=== PATIENT | female | born 1955 ===

== ENCOUNTER → 2025-01-29 15:17 | Outpatient (CLI) | payer MEDICARE, OTHER, SELFPAY ==
--- NOTE | 2025-01-29 15:29 | DI.MG.S_ITS ---
MM screening mammo BI: 01/29/2025. BI-RADS: 0 CLINICAL: 69-year old female for bilateral screening mammogram. Tyrer-Cuzick lifetime risk of 4.6%. No personal or first-degree family history of breast cancer. PRIOR EXAMS: 12/05/2022, 01/08/2020. MAMMOGRAPHY TECHNIQUE: 2D and 3D (tomosynthesis) digital mammographic views obtained, with additional images as needed for full coverage. Current study was also evaluated with a Computer Aided Detection (CAD) system. DENSITY C. The breasts are heterogeneously dense, which may obscure small masses. MAMMOGRAPHY FINDINGS Right: CC only, Inner, Middle depth: Asymmetry needing additional imaging evaluation. Left: No suspicious mass, asymmetry, microcalcification, or other abnormality seen. IMPRESSION: Right (Asymmetry): CC only, Inner, Middle depth * Incomplete - asymmetry needing additional imaging evaluation. Left * No evidence of malignancy. RECOMMENDATIONS Right: CC only, Inner, Middle depth * Further evaluation with diagnostic mammography and diagnostic ultrasound. Ultrasound to be performed only if needed. OVERALL ASSESSMENT CATEGORY BI-RADS-0: Incomplete - Need Additional Imaging Evaluation. ELECTRONICALLY SIGNED: Sana Cochran M.D. on 02/02/2025 at 08:19:36 AM PT Interpreting Station ID: [id number]
== END ==
PROVIDERS: PCP Registered Nurse; Referring Provider Registered Nurse; Visit Provider Registered Nurse
DX: Z12.31 Encounter for screening mammogram for malignant neoplasm of breast (principal); R92.333 Mammographic heterogeneous density, bilateral breasts
CPT/HCPCS: 77063; 77067

== ENCOUNTER → 2025-03-02 08:41 | Outpatient (CLI) | payer MEDICARE, OTHER, SELFPAY ==
--- NOTE | 2025-03-02 08:43 | DI.MG.S_ITS ---
MM diagnostic mammo unilat RT, US breast RT limited: 03/02/2025 BI-RADS: 2 CLINICAL: 69-year old female for right diagnostic mammogram and right diagnostic breast ultrasound that is a recall from screening on 01/29/2025. Tyrer-Cuzick lifetime risk of 4.6%. No personal or first-degree family history of breast cancer. PRIOR EXAMS 01/29/2025, 12/05/2022, 01/08/2020. MAMMOGRAPHY TECHNIQUE: 2D and 3D (tomosynthesis) digital mammographic views obtained, with additional images as needed for full coverage. Current study was also evaluated with a Computer Aided Detection (CAD) system. ULTRASOUND TECHNIQUE: Real-time lui scale imaging of the area of clinical interest was performed with image documentation. TARGETED Right Breast Ultrasound: Real-time ultrasound exam was performed focused to area of clinical and/or imaging concern. DENSITY Right: C. The breast is heterogeneously dense, which may obscure small masses. MAMMOGRAPHY FINDINGS Right: CC only, Inner, Middle depth: The finding seen on recent screening mammogram did not persist with additional imaging and is consistent with benign fibroglandular tissue. There are no suspicious masses, calcifications, or other findings in the breast. ULTRASOUND FINDINGS Right: Upper Inner at 2:00, 6 cm from nipple: There is no sonographic correlate for the mammographic finding. No suspicious sonographic finding present. Right: Inner at 3:00, 6 cm from nipple: There is no sonographic correlate for the mammographic finding. No suspicious sonographic finding present. Right: Lower Inner at 4:00, 6 cm from nipple: There is no sonographic correlate for the mammographic finding. No suspicious sonographic finding present. IMPRESSION: Right * No evidence of malignancy with benign findings. RECOMMENDATIONS Bilateral * Annual screening mammography. COMMENTS: Findings and recommendations were conveyed to the patient during today's evaluation. OVERALL ASSESSMENT CATEGORY BI-RADS-2: Benign. [employer] recommends annual screening mammography beginning at age 40 for women with average risk of breast cancer. ELECTRONICALLY SIGNED: Sana Cochran M.D. on 03/02/2025 at 09:53:34 AM PT Interpreting Station ID: [id number]
== END ==
LOC: MAMMO 08:42
PROVIDERS: PCP Registered Nurse; Referring Provider Registered Nurse; Visit Provider Registered Nurse
DX: R92.8 Other abnormal and inconclusive findings on diagnostic imaging of breast (principal); R92.331 Mammographic heterogeneous density, right breast
CPT/HCPCS: 76642; 77065; G0279

== ENCOUNTER → 2025-03-03 12:12 | Outpatient (CLI) | payer MEDICARE, OTHER, SELFPAY ==
--- NOTE | 2025-03-03 12:15 | DI.RAD.S_ITS ---
PROCEDURE: XR CERVICAL SPINE 4V OR 5V INDICATIONS: PAIN TECHNIQUE: Four views of the cervical spine acquired. COMPARISON: None. FINDINGS: Cervical spine curvature and alignment: Straightening lordotic curve suggesting muscle spasm. Bones: There are no osseous abnormalities. Disc spaces: Moderate C4-5, severe C5-6 moderate C6-7 and C7-T1 degenerative disc disease. Moderate C2-3 through C7-T1 degenerative facet disease . Intervertebral foramen: Moderate narrowing both C4-5 C5-6 C6-7 C7-T1 IV foramen on oblique views Soft tissues: No soft tissue swelling, calcification or mass. IMPRESSION: Degeneration Dictated by: Sebastian Sal M.D. on 03/04/2025 at 13:13 Approved by: Sebastian Sal M.D. on 03/04/2025 at 13:14
== END ==
PROVIDERS: PCP Registered Nurse; Referring Provider Registered Nurse; Visit Provider Registered Nurse
DX: M50.121 Cervical disc disorder at C4-C5 level with radiculopathy (principal); M50.13 Cervical disc disorder with radiculopathy, cervicothoracic region; M48.02 Spinal stenosis, cervical region; M48.03 Spinal stenosis, cervicothoracic region
CPT/HCPCS: 72050

== ENCOUNTER → 2025-04-09 07:16 | Outpatient (CLI) | payer MEDICARE, OTHER, SELFPAY ==
--- NOTE | 2025-04-09 07:17 | DI.MRI.S_ITS ---
PROCEDURE: MR CERVICAL SPINE WO CON INDICATIONS: Parkinsonian Sx; Cervical Radiculopathy TECHNIQUE: Noncontrast sagittal T1 spin echo and T2 fast spin echo, sagittal STIR, foraminal oblique sagittal T2 fast spin echo, and axial gradient echo or T2 fast spin echo through the cervical spine. COMPARISON: None. FINDINGS: Image quality: Excellent. Alignment and Curvature: There is straightening of normal cervical lordosis. Bone Marrow: There is no marrow edema. No acute vertebral body compression fracture. Spinal Cord: Visualized spinal cord has normal size and signal. No cerebellar tonsillar herniation. Paraspinous Soft Tissues: No paravertebral masses. Prevertebral soft tissues are normal in thickness. C2-C3: Disc desiccation. No significant disc bulge, canal stenosis or neural foraminal narrowing. C3-C4: Disc desiccation. Diffuse disc bulge and mild central disc herniation with mild effacement of thecal sac anteriorly. Mild bilateral neural foraminal narrowing is seen. C4-C5: Disc desiccation and loss of disc height. Diffuse disc bulge and bilateral facet hypertrophic changes with mild central canal stenosis and [id number] left- sided neural foraminal narrowing. Mild right-sided neural foraminal narrowing is also seen. C5-C6: There is near complete loss of disc height and disc desiccation. Broad- based disc bulge and superimposed central disc herniation/extrusion causing moderate central canal stenosis. Jnpu-hq-glxiulve bilateral neural foraminal narrowing is seen. Bulging disc likely contacting bilateral C6 nerve roots. C6-C7: There is loss of disc height and disc desiccation. Broad-based disc bulge and bilateral facet hypertrophic changes with [id number] central canal stenosis and left-sided neural foraminal narrowing. Bulging disc likely contacting left C7 nerve root. No significant right-sided neural foraminal narrowing. C7-T1: Normal appearance. IMPRESSION: 1. No marrow edema. No acute cervical spine fracture or dislocation. No abnormal cervical spinal cord signal. 2. Dyra-sa-hilzqgyy degenerative disc disease throughout cervical spine causing various degrees of central canal stenosis and bilateral neural foraminal narrowing most notably at C5-6 level as above. Dictated by: Jonathan Downs M.D. on 04/09/2025 at 20:28 Approved by: Jonathan Downs M.D. on 04/09/2025 at 20:30
--- NOTE | 2025-04-09 07:17 | DI.MRI.S_ITS ---
PROCEDURE: MR HEAD/BRAIN WO/W CON INDICATIONS: Parkinsonian Sx; Cervical Radiculopathy TECHNIQUE: Noncontrast axial T1 spin echo, axial T2 fast spin echo, sagittal and axial FLAIR, coronal T2 fast spin echo, axial gradient echo, axial diffusion and ADC through the brain. After the administration of contrast, axial and coronal and sagittal T1 spin echo with fat saturation through the brain. COMPARISON: None. FINDINGS: Image quality: Excellent. CSF spaces: Basal cisterns are patent. No extra-axial fluid collections. Ventricles are normal in size and shape. Brain: No midline shift. No intracranial bleeds or masses. No abnormal intracranial enhancement. There is cerebral volume loss for age. There is periventricular white matter chronic small vessel ischemic change. The brainstem appears normal. Diffusion-weighted images demonstrate no acute infarct. No chronic ischemic insults. Normal intravascular flow voids are present. Skull and face: Calvarial marrow is normal in signal. Orbits appear normal. Sinuses: Sinuses and mastoids appear clear. IMPRESSION: No acute intracranial abnormality. Microangiopathic ischemic changes with cerebral and cerebellar volume loss. No abnormal enhancing lesion. Dictated by: Moraima Hoover M.D. on 04/10/2025 at 13:45 Approved by: Moraima Hoover M.D. on 04/10/2025 at 14:01
== END ==
LOC: MRI 07:17
PROVIDERS: PCP Registered Nurse; Referring Provider Registered Nurse; Visit Provider Registered Nurse
DX: M50.11 Cervical disc disorder with radiculopathy, high cervical region (principal); M48.02 Spinal stenosis, cervical region; R25.1 Tremor, unspecified
CPT/HCPCS: 70553; 72141; A9579